=== PATIENT | male | born 1975 | race Caucasian/White ===

== ENCOUNTER 2018-07-23 08:08 | Emergency (ER) | payer BC ==
[2018-07-23] MEDS ORDERED: Sodium Chloride 0.9% 10 ML SDV IV PRN (08:16)
[2018-07-23] MEDS ORDERED: Sodium Chloride 0.9% 10 ML Syringe FLUSH PRN (08:16)
[2018-07-23] MEDS ORDERED: Sodium Chloride 0.9% 2.5 ML Syringe FLUSH PRN (08:16)
[2018-07-23] MEDS ORDERED: Aspirin 81 MG Tab.Chew PO ONE (08:27)
--- NOTE | 2018-07-23 08:28 | EDM.PDOC ---
ED HPI GENERAL MEDICAL PROBLEM - General Chief Complaint: Chest Pain Stated Complaint: chest pain Time Seen by Provider: 07/23/18 08:26 - History of Present Illness INITIAL COMMENTS - FREE TEXT/NARRATIVE: HISTORY AND PHYSICAL: History of present illness: Patient's 43-year-old white male presents with a concern of chest pain he states he awoke with this at 4 AM he's had multiple similar episodes in the past with an extensive cardiac workup that has included stress test multiple EKGs in angiogram that were all negative within the last year he denies associated shortness of breath palpitations nausea vomiting or diaphoresis this is vaguely described. He states that this is same as he's had multiple episodes prior. Patient denies history of hypertension hypercholesterolemia diabetes and is a nonsmoker Review of systems: As per history of present illness and below otherwise all systems reviewed and negative. Past medical history: As per history of present illness and as reviewed below otherwise noncontributory. Surgical history: As per history of present illness and as reviewed below otherwise noncontributory. Social history: No reported history of drug or alcohol abuse. Family history: As per history of present illness and as reviewed below otherwise noncontributory. Physical exam: HEENT: Atraumatic, normocephalic, pupils reactive, negative for conjunctival pallor or scleral icterus, mucous membranes moist, throat clear, neck supple, nontender, trachea midline. Lungs: Clear to auscultation, breath sounds equal bilaterally, chest nontender. Heart: S1S2, regular, negative for clicks, rubs, or JVD. Abdomen: Soft, nondistended, nontender. Negative for masses or hepatosplenomegaly. Negative for costovertebral tenderness. Pelvis: Stable nontender. Genitourinary: Deferred. Rectal: Deferred. Extremities: Atraumatic, negative for cords or calf pain. Neurovascular unremarkable. Neuro: Awake, alert, oriented. Cranial nerves II through XII unremarkable. Cerebellum unremarkable. Motor and sensory unremarkable throughout. Exam nonfocal. Diagnostics: CBC CMP PT/INR chest x-ray EKG Therapeutics: Aspirin 325 mg by mouth Impression: #1 atypical chest pain Definitive disposition and diagnosis as appropriate pending reevaluation and review of above. chest Pain Score (Numeric/FACES): 4 - Related Data Allergies Allergy/AdvReac Type Severity Reaction Status Date / Time No Known Allergies Allergy Verified 07/23/18 08:21 Home Meds: Home Meds Venlafaxine [Effexor] 07/23/18 [History] Past Medical History Other Cardiovascular History: angiogram-"no blockage" Respiratory History: Reports: Asthma - Infectious Disease History Infectious Disease History: Reports: Chicken Pox - Past Surgical History GI Surgical History: Reports: Hernia Repair/Other Social & Family History - Family History Family Medical History: Noncontributory - Tobacco Use Smoking Status *Q: Never Smoker - Recreational Drug Use Recreational Drug Use: No ED ROS GENERAL - Review of Systems Review Of Systems: ROS reveals no pertinent complaints other than HPI. ED EXAM, GENERAL - Physical Exam Exam: See Below (See dictation) Course - Vital Signs Last Recorded V/S: Last Vital Signs Temp 36.4 C 07/23/18 08:17 Pulse 50 L 07/23/18 09:47 Resp 16 07/23/18 09:47 BP 140/92 H 07/23/18 09:47 Pulse Ox 98 07/23/18 09:47 - Orders/Labs/Meds Orders: Active Orders 24 hr Category Date Time Status Cardiac Monitoring [RC] . DIRECTED Care 07/23/18 08:16 Active EKG Documentation Completion [RC] STAT Care 07/23/18 08:16 Active UA W/MICROSCOPIC [URIN] Stat Lab 07/23/18 08:16 Ordered Sodium Chloride 0.9% [Normal Saline] Med 07/23/18 08:16 Active 10 ml IV ASDIRECTED PRN Sodium Chloride 0.9% [Saline Flush] Med 07/23/18 08:16 Active 10 ml FLUSH ASDIRECTED PRN Sodium Chloride 0.9% [Saline Flush] Med 07/23/18 08:16 Active 2.5 ml FLUSH ASDIRECTED PRN Peripheral IV Insertion Adult [OM.PC] Stat Oth 07/23/18 08:16 Ordered Medication Orders Sodium Chloride (Saline Flush) 10 ml FLUSH ASDIRECTED PRN PRN Reason: Keep Vein Open Last Admin: 07/23/18 08:31 Dose: 10 ml Sodium Chloride (Saline Flush) 2.5 ml FLUSH ASDIRECTED PRN PRN Reason: Keep Vein Open Last Admin: 07/23/18 08:31 Dose: 2.5 ml Sodium Chloride (Normal Saline) 10 ml IV ASDIRECTED PRN PRN Reason: IV Use Last Admin: 07/23/18 08:31 Dose: 10 ml Labs: Laboratory Tests 07/23/18 07/23/18 Range/Units 08:20 08:20 WBC 5.64 (4.0-11.0) K/uL RBC 4.56 (4.50-5.90) M/uL Hgb 13.1 (13.0-17.0) g/dL Hct 38.6 (38.0-50.0) % MCV 84.6 (80.0-98.0) fL MCH 28.7 (27.0-32.0) pg MCHC 33.9 (31.0-37.0) g/dL RDW Std Deviation 43.5 (28.0-62.0) fl RDW Coeff of Christel 14 (11.0-15.0) % Plt Count 232 (150-400) K/uL MPV 9.10 (7.40-12.00) fL Neut % (Auto) 66.2 (48.0-80.0) % Lymph % (Auto) 20.9 (16.0-40.0) % Trinity % (Auto) 9.4 (0.0-15.0) % Eos % (Auto) 3.0 (0.0-7.0) % Baso % (Auto) 0.5 (0.0-1.5) % Neut # (Auto) 3.7 (1.4-5.7) K/uL Lymph # (Auto) 1.2 (0.6-2.4) K/uL Trinity # (Auto) 0.5 (0.0-0.8) K/uL Eos # (Auto) 0.2 (0.0-0.7) K/uL Baso # (Auto) 0.0 (0.0-0.1) K/uL Nucleated RBC % 0.0 /100WBC Nucleated RBCs # 0 K/uL Sodium 141 (136-148) mmol/L Potassium 3.8 (3.5-5.1) mmol/L Chloride 106 (98-107) mmol/L Carbon Dioxide 26.7 (21.0-32.0) mmol/L BUN 22 H (7.0-18.0) mg/dL Creatinine 1.2 (0.8-1.3) mg/dL Est Cr Clr Drug Dosing 90.63 mL/min Estimated GFR (MDRD) > 60.0 ml/min Glucose 99 (74-106) mg/dL Calcium 8.5 (8.5-10.1) mg/dL Total Bilirubin 0.4 (0.2-1.0) mg/dL AST 23 (15-37) IU/L ALT 49 (14-63) IU/L Alkaline Phosphatase 96 (46-116) U/L Creatine Kinase 441 H (26-308) U/L Troponin I < 0.050 (0.000-0.056) ng/mL Total Protein 6.5 (6.4-8.2) g/dL Albumin 3.6 (3.4-5.0) g/dL Globulin 2.9 (2.6-4.0) g/dL Albumin/Globulin Ratio 1.2 (0.9-1.6) Amylase 28 (25-115) U/L Lipase 119 (73-393) U/L Meds: Medications Generic Name Dose Route Start Last Admin Trade Name Freq PRN Reason Stop Dose Admin Sodium Chloride 10 ml 07/23/18 08:16 07/23/18 08:31 Saline Flush FLUSH 10 ml ASDIRECTED PRN Administration Keep Vein Open Sodium Chloride 2.5 ml 07/23/18 08:16 07/23/18 08:31 Saline Flush FLUSH 2.5 ml ASDIRECTED PRN Administration Keep Vein Open Sodium Chloride 10 ml 07/23/18 08:16 07/23/18 08:31 Normal Saline IV 10 ml ASDIRECTED PRN Administration IV Use Discontinued Medications Generic Name Dose Route Start Last Admin Trade Name Freq PRN Reason Stop Dose Admin Aspirin 324 mg 07/23/18 08:27 07/23/18 08:31 Aspirin PO 07/23/18 08:28 324 mg ONETIME ONE Administration Departure - Departure Time of Disposition: 10:01 Disposition: Home, Self-Care 01 Condition: Good Clinical Impression: Atypical chest pain - Discharge Information Referrals: PCP,Unknown [Primary Care Provider] - Forms: ED Department Discharge Additional Instructions: The following information is given to patients seen in the emergency department who are being discharged to home. This information is to outline your options for follow-up care. We provide all patients seen in our emergency department with a follow-up referral. The need for follow-up, as well as the timing and circumstances, are variable depending upon the specifics of your emergency department visit. If you don't have a primary care physician on staff, we will provide you with a referral. We always advise you to contact your personal physician following an emergency department visit to inform them of the circumstance of the visit and for follow-up with them and/or the need for any referrals to a consulting specialist. The emergency department will also refer you to a specialist when appropriate. This referral assures that you have the opportunity for followup care with a specialist. All of these measure are taken in an effort to provide you with optimal care, which includes your followup. Under all circumstances we always encourage you to contact your private physician who remains a resource for coordinating your care. When calling for followup care, please make the office aware that this follow-up is from your recent emergency room visit. If for any reason you are refused follow-up, please contact the [facility] emergency department at and asked to speak to the emergency department charge nurse. Follow-up primary medical doctor as needed as discussed return as needed as discussed - My Orders Last 24 Hours: My Active Orders 07/23/18 08:16 Cardiac Monitoring [RC] . DIRECTED EKG Documentation Completion [RC] STAT UA W/MICROSCOPIC [URIN] Stat Sodium Chloride 0.9% [Normal Saline] 10 ml IV ASDIRECTED PRN Sodium Chloride 0.9% [Saline Flush] 10 ml FLUSH ASDIRECTED PRN Sodium Chloride 0.9% [Saline Flush] 2.5 ml FLUSH ASDIRECTED PRN Peripheral IV Insertion Adult [OM.PC] Stat - Assessment/Plan Last 24 Hours: My Active Orders 07/23/18 08:16 Cardiac Monitoring [RC] . DIRECTED EKG Documentation Completion [RC] STAT UA W/MICROSCOPIC [URIN] Stat Sodium Chloride 0.9% [Normal Saline] 10 ml IV ASDIRECTED PRN Sodium Chloride 0.9% [Saline Flush] 10 ml FLUSH ASDIRECTED PRN Sodium Chloride 0.9% [Saline Flush] 2.5 ml FLUSH ASDIRECTED PRN Peripheral IV Insertion Adult [OM.PC] Stat
[2018-07-23 08:51] LABS: CHLORIDE,CL 106 mmol/L (98-107); SODIUM,NA 141 mmol/L (136-148)
--- NOTE | 2018-07-23 09:12 | CR ---
INDICATION: CHEST PAIN COMPARISON: None available. FINDINGS: Single portable AP view of the chest demonstrates mild asymmetric elevation of the right hemidiaphragm. No focal airspace consolidation, pneumothorax or effusion. Cardiomediastinal silhouette is unremarkable for an AP view. No acute osseous findings. IMPRESSION: Negative single AP view of the chest. Dictated by Jagdeep Braun MD @ 07/23/2018 9:10:50 AM Dictated by: Jagdeep Braun MD @ 07/23/2018 09:10:56 (Electronically Signed)
== END 2018-07-23 10:15 | disposition home or self-care (01) ==
LOC: MW.ED 08:08
DX: R07.89 Other chest pain (principal)
CPT/HCPCS: 36415; 71045; 80053; 82150; 82550; 83690; 84484; 85025; 93005; 99285; A9270